=== PATIENT | male | born 1985 | race Caucasian/White ===

== ENCOUNTER 2021-01-14 12:39 | Emergency (ER) | payer OTHER ==
[~2021-01-14] VITALS: Ht 190.5 cm; Wt 116.1 kg
--- NOTE | 2021-01-14 12:55 | NUR ---
PT BROUGHT BY PARAMEDICS TWICE ALREADY FOR AN ANKLE PAIN. EVERYTIME PATIENT GETS REGISTERED, PT JUST WALKED AWAY REFUSING TO BE TRIAGED.
== END 2021-01-14 12:58 | disposition left against medical advice (07) ==
LOC: ER 12:39
DX: M79.673 Pain in unspecified foot (principal); Z53.21 Procedure and treatment not carried out due to patient leaving prior to being seen by health care provider